=== PATIENT | female | born 1930 | race Caucasian/White ===

== ENCOUNTER 2016-09-15 22:01 | Inpatient (IN) | payer MEDICARE, MEDICAID ==
[2016-09-15 22:42] LABS: BASO # 0.1 K/uL (0.0-0.2); BASO % 1.3 % (0.0-2.0); EOS % 0.5 % (0.0-4.0); LYMPH # 1.7 K/uL (1.0-4.3); LYMPH % 27.2 % (20.0-40.0); MEAN CELL VOLUME 91.1 fL (81.0-99.0); MEAN CORPUSCULAR HEMOGLOBIN 30.7 pg (27.0-31.0); MEAN CORPUSCULAR HGB CONC 33.7 g/dL (33.0-37.0); MEAN PLATELET VOLUME 8.4 fL (7.2-11.7); MONO # 0.5 K/uL (0.0-0.8); MONO % 8.2 % (0.0-10.0); RED CELL DISTRIBUTION WIDTH 12.9 % (11.5-14.5); WHITE BLOOD COUNT 6.2 K/uL (4.8-10.8)
[2016-09-15 22:49] LABS: CHLORIDE 99 mmol/L (98-107); POTASSIUM 3.1 mmol/L (3.6-5.2); SODIUM 138 mmol/L (132-148)
[2016-09-15 22:51] LABS: ALB/GLOB RATIO 1.2 (1.0-2.1); ALKALINE PHOSPHATASE 125 U/L (38-126); AST/SGOT 28 U/L (14-36); BILIRUBIN,TOTAL 0.9 mg/dL (0.2-1.3); BLOOD UREA NITROGEN 13 mg/dL (7-17); CARBON DIOXIDE 26 mmol/L (22-30); GFR AFRICAN-AMERICAN > 60; TOTAL PROTEIN 7.1 g/dL (6.3-8.3)
[2016-09-15 22:52] LABS: ALCOHOL SERUM < 10 mg/dl (0-10); ALT/SGPT 20 U/L (9-52); CALCIUM 9.1 mg/dl (8.6-10.4); GLUCOSE,RANDOM 123 mg/dL (65-105)
[2016-09-15 22:56] LABS: RBC URINE 4 /hpf (0-3); TRANSITIONAL EPITHIAL < 1 /hpf (0-3); URINE BACTERIA RARE (<OCC); URINE BILIRUBIN NEGATIVE (NEGATIVE); URINE BLOOD 1+ (NEGATIVE); URINE COLOR Yellow (YELLOW); URINE GLUCOSE (UA) NORMAL (Normal); URINE HYALINE CAST 0-2 /lpf (0-2); URINE KETONE TRACE mg/dL (NEGATIVE); URINE LEUKOCYTE ESTERASE 1+ Leu/uL (Negative); URINE PROTEIN NEGATIVE (NEGATIVE); URINE UROBILINOGEN NORMAL mg/dL (0.2-1.0); WBC URINE 6 /hpf (0-5)
[2016-09-15 23:08] LABS: FREE T4 1.32 ng/dL (0.78-2.19)
--- NOTE | 2016-09-15 23:11 | C.PDOC ---
History Of Present Illness Patient is a 86 y/o female that is brought to the ED via BLS after being found confused and disoriented at the hotel she resides at. According to family, pt has history of dementia for the past several years. She stays at a hotel with her son but he recently was admitted to [facility] with a cancer diagnosis.. As per family, patient has been alone at the hotel, found to be confused, wandering in the hallways. She is not eating well and has not been sleeping. Patient denies any medical complaints at this time. Time Seen by Provider: 09/15/16 22:08 Chief Complaint (Nursing): Medical Clearance History Per: Patient History/Exam Limitations: no limitations Onset/Duration Of Symptoms: Days Current Symptoms Are (Timing): Still Present Recent travel outside of the [place]: No Additional History Per: EMS Past Medical History Reviewed: Historical Data, Nursing Documentation, Vital Signs Vital Signs: Last Vital Signs Temp 98.3 F 09/15/16 22:08 Pulse 74 09/15/16 22:08 Resp 20 09/15/16 22:08 BP 143/83 09/15/16 22:08 Pulse Ox 99 09/15/16 23:44 - Medical History PMH: Alzheimer's Disease, Dementia (Dizziness) Denies: Arthritis, CHF, COPD, HTN, Hypercholesterolemia, Hypothyroidism, Chronic Kidney Disease, Rheumatoid Arthritis Surgical History: Cholecystectomy - [facility] Procedures APPLICATION OF SPLINT (01/27/14) DPT ADMINISTRATION (09/13/14) VACCINATION NEC (09/13/14) Family History: States: Unknown Family Hx - Social History Hx Alcohol Use: No Hx Substance Use: No Review Of Systems Except As Marked, All Systems Reviewed And Found Negative. Constitutional: Negative for: Fever, Chills Cardiovascular: Negative for: Chest Pain, Palpitations Respiratory: Negative for: Shortness of Breath Gastrointestinal: Negative for: Nausea, Vomiting, Abdominal Pain Neurological: Positive for: Confusion. Negative for: Headache, Dizziness Physical Exam - Physical Exam Appears: Non-toxic, No Acute Distress Skin: Normal Color, Warm, Dry Head: Atraumatic, Normacephalic Eye(s): bilateral: Normal Inspection, EOMI Neck: Normal ROM, Supple Chest: Symmetrical, No Tenderness Cardiovascular: Rhythm Regular, No Murmur Respiratory: Normal Breath Sounds, No Rales, No Rhonchi, No Wheezing Gastrointestinal/Abdominal: Soft, No Tenderness Neurological/Psych: No Oriented x3, Normal Speech Disoriented To: Place, Time ED Course And Treatment - Laboratory Results Result Diagrams: 09/15/16 22:32 09/15/16 22:32 Lab Interpretation: Abnormal (Normal except for TSH 6.6) O2 Sat by Pulse Oximetry: 99 (on RA) Pulse Ox Interpretation: Normal - CT Scan/US Head CT Other Rad Studies (CT/US): Read By Radiologist, Radiology Report Reviewed CT/US Interpretation: FINDINGS: Brain: There is dilatation of sulci gyri and ventricles. There is no midline shift. There is decreased. attenuation in periventricular white matter. There is an age-indeterminate lacunar infarct in the left. basal ganglia There are no focal masses. There are no focal hemorrhages. Neal-white differentiation. is visualized. Ventricles: See above. Bones: Cranial vault is intact. Soft tissues: unremarkable. Sinuses: There is right maxillary sinusitis. Ears and mastoids: Middle ears and mastoids are unremarkable. Orbits: Orbital contents are unremarkable. IMPRESSION: Atrophy and small vessel disease, no bleed; right maxillary sinusitis Progress Note: Head CT, labs ordered and reviewed. - Physician Consult Information Time Consulting Physician Contacted: 23:56 Physician Contacted: Colette De Outcome Of Conversation: Patient to be admitted with altered mental status. Disposition - Disposition Disposition: HOSPITALIZED Disposition Time: 23:57 Condition: STABLE - POA Present On Arrival: None - Clinical Impression Clinical Impression: Mental status alteration - Scribe Statement The provider has reviewed the documentation as recorded by the Flores Smtih Provider Attestation: All medical record entries made by the Flores were at my direction and personally dictated by me. I have reviewed the chart and agree that the record accurately reflects my personal performance of the history, physical exam, medical decision making, and the department course for this patient. I have also personally directed, reviewed, and agree with the discharge instructions and disposition.
[2016-09-15 23:22] LABS: THYROID STIMULATING HORMONE 6.6 mIU/L (0.46-4.68)
--- NOTE | 2016-09-15 23:23 | CT ---
EXAM: CT Head Without Intravenous Contrast CLINICAL HISTORY: 86 years old, female; Signs and symptoms; Other: Dementia; Patient HX: 07-17-15 TECHNIQUE: Axial computed tomography images of the head/brain without intravenous contrast. This CT exam was performed using one or more of the following dose reduction techniques: automated exposure control, adjustment of the mA and/or kV according to patient size, and/or use of iterative reconstruction technique. EXAM DATE/TIME: 09/15/2016 10:17 PM COMPARISON: There are no prior studies for comparison. FINDINGS: Brain: There is dilatation of sulci gyri and ventricles. There is no midline shift. There is decreased attenuation in periventricular white matter. There is an age-indeterminate lacunar infarct in the left basal ganglia There are no focal masses. There are no focal hemorrhages. Neal-white differentiation is visualized. Ventricles: See above. Bones: Cranial vault is intact. Soft tissues: unremarkable Sinuses: There is right maxillary sinusitis. Ears and mastoids: Middle ears and mastoids are unremarkable. Orbits: Orbital contents are unremarkable. IMPRESSION: Atrophy and small vessel disease, no bleed; right maxillary sinusitis
[2016-09-17 08:36] LABS: HEMATOCRIT 37.8 % (34.0-47.0); MEAN CELL VOLUME 91.5 fL (81.0-99.0); MEAN CORPUSCULAR HGB CONC 33.9 g/dL (33.0-37.0); MEAN PLATELET VOLUME 8.5 fL (7.2-11.7); RED CELL DISTRIBUTION WIDTH 13.1 % (11.5-14.5); WHITE BLOOD COUNT 6.3 K/uL (4.8-10.8)
[2016-09-17 09:07] LABS: CHLORIDE 103 mmol/L (98-107)
[2016-09-17 09:08] LABS: SODIUM 138 mmol/L (132-148)
[2016-09-17 09:10] LABS: CARBON DIOXIDE 28 mmol/L (22-30); CHOLESTEROL 172 mg/dL (0-199)
[2016-09-17 09:11] LABS: ALB/GLOB RATIO 0.9 (1.0-2.1); ALKALINE PHOSPHATASE 113 U/L (38-126); ALT/SGPT 22 U/L (9-52); AST/SGOT 25 U/L (14-36); BILIRUBIN,DIRECT 0.3 mg/dL (0.0-0.4); BILIRUBIN,TOTAL 0.7 mg/dL (0.2-1.3); BLOOD UREA NITROGEN 10 mg/dL (7-17); GFR AFRICAN-AMERICAN > 60; GLUCOSE,RANDOM 97 mg/dL (65-105); TOTAL PROTEIN 6.4 g/dL (6.3-8.3)
[2016-09-17 09:32] LABS: THYROID STIMULATING HORMONE 5.71 mIU/L (0.46-4.68)
[2016-09-17] MEDS: Multiple Vitamins Tab PO SCH (10:59)
[2016-09-17] MEDS ORDERED: Potassium Chloride 20 mEq/15 ml LIQ UD PO ONE ×2 (11:00→14:00)
--- NOTE | 2016-09-17 21:25 | CON ---
DATE: 09/17/2016 HISTORY OF PRESENT ILLNESS: This is an 86-year-old female with a past medical history of de mentia, Alzheimer's type, came here with altered mental status from and found to be confused an d wandering in the hallway. Now CAT scan of the head was done, which did not show acute findings, on ly an old lacunar infarct. PAST MEDICAL HISTORY: As above. Denies high blood pressure, diabetes. REVIEW OF SYSTEMS: A 10-point review of systems was negative except confused. PHYSICAL EXAMINATION: HEENT: Normocephalic, atraumatic. NECK: Supple. NEUROLOGIC: Alert, awake, oriented to self and not to place. Cranial nerves II-XII were tested. Pu pils reactive. EOM intact. Visual horowitz full. No facial asymmetry. Tongue midline. Motor examin ation: Moves all the extremities spontaneously. Deep tendon reflexes 1+. Both plantars are downgoi ng. Sensory appears intact. Cerebellar and gait deferred. IMPRESSION: Dementia with intermittent confusional state. CAT scan of the head was negative for ble ed. LABORATORY DATA: WBC 6.2, hemoglobin 13.5, hematocrit 40, platelets 219. Sodium 138, potassium 3.1, chloride 99, CO2 , glucose 123, BUN 13, creatinine . Will put her on Aricept 10 mg p.o. daily. Continue present medical Horace Adkins MD cc: [id number] TT: 09/17/2016 21:24:54 Confirmation # [id number] Dictation # [id number] mn
--- NOTE | 2016-09-18 07:13 | PN ---
DATE: 09/17/2016 SUBJECTIVE: The patient seen and examined on the bedside, looks comfortable, sleeping, easily arousa ble. No nausea, vomiting, or diarrhea. No hematuria or hematochezia. No swelling of the legs. No headache, no dizziness. PHYSICAL EXAMINATION: VITAL SIGNS: Temperature 97.5, pulse 111, blood pressure 186//85, respiratory rate 20. HEENT: Head normocephalic, atraumatic. Eyes: PERRLA. Extraocular muscles intact. Conjunctivae cl ear. Nose patent. Mucous membranes moist. NECK: Supple. No carotid bruit, JVD or thyromegaly. CHEST: Bilaterally symmetrical. HEART: S1, S2 positive. LUNGS: Clear to auscultation. ABDOMEN: Soft. Bowel sounds positive. No organomegaly. EXTREMITIES: No edema, no cyanosis. NEUROLOGIC: The patient is awake, alert, moving all 4 extremities, but confused. MEDICATIONS: Aricept, heparin, multivitamins, Pepcid, Tylenol. LABORATORY DATA: White blood cells 6.3, hemoglobin 12.8, hematocrit 37.8, and platelets 214. Sodium 138, potassium 3.0, BUN 10, creatinine 0.8, vitamin D 25 hydroxy is 1less than 12.8. ASSESSMENT AND PLAN: The patient is an 86-year-old female with hypokalemia, replaced; hypoalbuminemi a, vitamin D deficiency, hypothyroidism, hematuria, urinary tract infection, history of altered menta l status, dementia, living alone, anxious, cannot take care of herself. Son wishes to take care of h er, but now son is in the hospital struggling with metastatic cancer. CAT scan of the head is negati ve for bleed. Gastrointestinal and deep venous thrombosis prophylaxis. Repeat labs. We will follow up. Colette De MD cc: [id number] TT: 09/18/2016 07:13:24 Confirmation # [id number] Dictation # [id number] tn
[2016-09-18 08:26] LABS: CHLORIDE 101 mmol/L (98-107); SODIUM 140 mmol/L (132-148)
[2016-09-18 08:27] LABS: POTASSIUM 3.7 mmol/L (3.6-5.2)
[2016-09-18 08:29] LABS: GFR AFRICAN-AMERICAN > 60
[2016-09-18 08:30] LABS: BLOOD UREA NITROGEN 15 mg/dL (7-17); CARBON DIOXIDE 27 mmol/L (22-30); GLUCOSE,RANDOM 137 mg/dL (65-105)
[2016-09-18] MEDS: Multiple Vitamins Tab PO SCH (09:50)
--- NOTE | 2016-09-18 21:47 | PN ---
DATE: 09/18/2016 SUBJECTIVE: The patient was seen and examined on the bedside, sleepy, arousable , moving all 4 extremities. No focal deficits. No nausea, vomiting, diarrhea or hematochezia. No swelling of the leg. No chest pain or palpitation, PHYSICAL EXAMINATION: VITAL SIGNS: Temperature 97.4, pulse 56, blood pressure 113/53, respiratory rate 21. HEAD: Normocephalic, atraumatic. EYES: PERRLA. Extraocular muscles intact. Conjunctivae clear. Nose patent. Mucous membranes moist. NECK: Supple. No carotid bruit or thyromegaly. CHEST: Bilaterally symmetrical. HEART: S1, S2 positive. LUNGS: Clear to auscultation. ABDOMEN: Soft. Bowel sounds present. No organomegaly. EXTREMITIES: No edema, no cyanosis. NEUROLOGIC: The patient is awake, alert, moving all 4 extremities. No focal deficits. The patient is awake, but confused. MEDICATIONS: Aricept, heparin, multivitamins, Pepcid, and Tylenol. LABORATORY DATA: White blood cells 6.3, hemoglobin 12.8, hematocrit 37.8, and platelets 214. Sodium 140, potassium 3.7, BUN of 15, creatinine 0.9 and glucose 137. ASSESSMENT AND PLAN: This patient is a 86-year-old lady with history of hypokalemia replaced, hyperglycemia, vitamin D deficiency, hypothyroidism, advanced dementia, living alone cannot do her ADLs, hematuria, urinary tract infection, history of altered mental status. Neurologist and psychiatrist are on the case. We will replace vitamin D. We will follow up. Gastrointestinal and deep vein thrombosis prophylaxis. Colette De MD cc: [id number] TT: 09/18/2016 21:46:38 Confirmation # [id number] Dictation # [id number] jn MTDD
[2016-09-19] MEDS: Multiple Vitamins Tab PO SCH (10:33)
[2016-09-20 10:10] VITALS: RESP 20
[2016-09-20] MEDS: Multiple Vitamins Tab PO SCH (10:22)
--- NOTE | 2016-09-20 11:03 | PN ---
DATE: 09/19/2016 The patient is an 86-year-old female. The patient is seen and examined on the bedside on 09/19/2016. Looks comfortable, not a good historian. No nausea, vomiting, diarrhea. No hematuria, no hematochezia. No swelling of the legs. No chest pain, no palpitation. No headache, no dizziness. PHYSICAL EXAMINATION: VITAL SIGNS: Temperature 97.9, pulse 78, blood pressure 120/80 , respiratory rate 18. HEENT: Head normocephalic, atraumatic. Eyes: PERRLA. Extraocular muscles intact. Conjunctivae clear. Nose patent. Mucous membranes moist. NECK: Supple. No carotid bruit, no JVD, no thyromegaly. CHEST: Bilaterally symmetrical. HEART: S1, S2 positive. LUNGS: Clear to auscultation. ABDOMEN: Soft. Bowel sounds positive. No organomegaly. EXTREMITIES: No edema, no cyanosis. NEUROLOGIC: The patient is awake, alert, moving all 4 extremities. No focal deficit, but confused. MEDICATIONS: Aricept, multivitamin, Pepcid, Tylenol. LABORATORIES: We do not have recent labs today, but I reviewed old labs. ASSESSMENT AND PLAN: The patient is an 86-year-old lady with dementia, intermittent confusional state. CAT scan of the head is negative for bleeding as per neurologist. History of electrolyte imbalance, replaced, vitamin D deficiency, replaced, hypothyroidism, activities of daily living dysfunction, hematuria, urinary tract infection, altered mental status. Neurologist is on the case. Gastrointestinal and deep venous thrombosis prophylaxis. Repeat labs. Will follow up. Colette De MD cc: [id number] TT: 09/20/2016 11:02:23 Confirmation # [id number] Dictation # [id number] en MTDD
--- NOTE | 2016-09-21 06:57 | PN ---
DATE: 09/20/2016 SUBJECTIVE: The patient was seen and examined on the bedside. No nausea, vomiting, or diarrhea. No hematuria or hematochezia. No swelling of the leg. No chest pain, no palpitation, no change of the status. PHYSICAL EXAMINATION: VITAL SIGNS: Temperature 97.6, pulse 94, blood pressure 114/79, respiratory rate 20. HEENT: Head normocephalic and atraumatic. Eyes: PERRLA. Extraocular muscles intact. Conjunctivae clear. Nose patent. Mucous membranes moist. NECK: Supple. No carotid bruit. No JVD or thyromegaly. CHEST: Bilaterally symmetrical. HEART: S1, S2 positive. LUNGS: Clear to auscultation. ABDOMEN: Soft. Bowel sounds present. No organomegaly. EXTREMITIES: No edema, no cyanosis. NEUROLOGIC: The patient is awake, alert, moving all 4 extremities. No focal deficits. MEDICATIONS: Aricept, multivitamin, Pepcid, Tylenol. LABORATORY DATA: We do not have recent labs today, but I reviewed old labs. ASSESSMENT AND PLAN: The patient is an 86-year-old lady with history of hypokalemia, improved, hyper glycemia, vitamin D deficiency, hypothyroidism, hematuria, proteinuria, urinary tract infection. Obie bermudez screening negative. Has advanced dementia. Neurologist and psychiatrist are on the case, awaiting for psychiatrist's input. CAT scan of the head is negative for bleeding as per neurologist. Replac ing vitamin D, monitoring hypothyroidism, had altered mental status. Neurology, Dr. Adkins, is on case. Waiting for Dr. London's input. Gastrointestinal and deep venous thrombosis prophylaxis. Re peat labs. We will follow up. Colette De MD cc: [id number] TT: 09/21/2016 06:57:34 Confirmation # [id number] Dictation # [id number] tn
[2016-09-21] MEDS: Multiple Vitamins Tab PO SCH (10:22)
[2016-09-22 08:20] LABS: BASO # 0.1 K/uL (0.0-0.2); EOS # 0.1 K/uL (0.0-0.7); EOS % 1.6 % (0.0-4.0); HEMATOCRIT 40.9 % (34.0-47.0); LYMPH # 2.9 K/uL (1.0-4.3); LYMPH % 36.5 % (20.0-40.0); MEAN CELL VOLUME 92.2 fL (81.0-99.0); MEAN CORPUSCULAR HEMOGLOBIN 30.7 pg (27.0-31.0); MEAN CORPUSCULAR HGB CONC 33.2 g/dL (33.0-37.0); MEAN PLATELET VOLUME 8.3 fL (7.2-11.7); MONO # 0.7 K/uL (0.0-0.8); MONO % 8.5 % (0.0-10.0); RED CELL DISTRIBUTION WIDTH 13.3 % (11.5-14.5); WHITE BLOOD COUNT 7.9 K/uL (4.8-10.8)
--- NOTE | 2016-09-22 08:29 | PN ---
DATE: 09/21/2016 SUBJECTIVE: The patient seen and examined on the bedside, looks comfortable. No nausea, vomiting, o r diarrhea. No hematuria or hematochezia. No swelling of the leg. No chest pain, no palpitations. No headache, no dizziness. PHYSICAL EXAMINATION: VITAL SIGNS: Temperature 98.3, pulse 78, blood pressure 153/77, respiratory rate 20. HEENT: Head normocephalic, atraumatic. Eyes: PERRLA. Extraocular muscles intact. Conjunctivae cl ear. Nose patent. Mucous membranes moist. NECK: Supple. No carotid bruit, JVD or thyromegaly. CHEST: Bilaterally symmetrical. HEART: S1, S2 positive. LUNGS: Clear to auscultation. ABDOMEN: Soft. Bowel sounds present. No organomegaly. EXTREMITIES: No edema, no cyanosis. NEUROLOGIC: The patient is awake, alert, moving all 4 extremities. No focal deficits. MEDICATIONS: Aricept, multivitamins, Pepcid, Tylenol. LABORATORY DATA: White count 6.4, hemoglobin 12.8, hematocrit 37.8, platelets 214. Sodium 140, pota ssium 3.7, BUN 15, creatinine 0.9, and glucose 137. ASSESSMENT AND PLAN: The patient is an 86-year-old lady with history of hypokalemia, improved; hyper glycemia, vitamin D deficiency, hypothyroidism, anemia. The patient was seen for the anemia with hem aturia, proteinuria, has advanced dementia, cannot do her activities of daily living. Seen by Dr. Peggy Adkins. Vitamin D deficiency. Neurology consult, infectious disease on the case, Needs rehabil itation. Altered mental status. Gastrointestinal and deep venous thrombosis prophylaxis. Repeat la bs. Length of time discussion done with the social workers. We will follow up. Colette De MD cc: [id number] TT: 09/22/2016 08:29:17 Confirmation # [id number] Dictation # [id number] sd
[2016-09-22 08:37] LABS: CHLORIDE 100 mmol/L (98-107); POTASSIUM 3.4 mmol/L (3.6-5.2); SODIUM 141 mmol/L (132-148)
[2016-09-22 08:39] LABS: GFR AFRICAN-AMERICAN > 60
[2016-09-22 08:40] LABS: ALB/GLOB RATIO 1.2 (1.0-2.1); ALKALINE PHOSPHATASE 110 U/L (38-126); ALT/SGPT 20 U/L (9-52); AST/SGOT 43 U/L (14-36); BILIRUBIN,TOTAL 0.9 mg/dL (0.2-1.3); BLOOD UREA NITROGEN 17 mg/dL (7-17); CARBON DIOXIDE 29 mmol/L (22-30); GLUCOSE,RANDOM 90 mg/dL (65-105); TOTAL PROTEIN 7.2 g/dL (6.3-8.3)
[2016-09-22 08:41] LABS: CALCIUM 9.2 mg/dl (8.6-10.4)
[2016-09-22] MEDS ORDERED: Ergocalciferol 50,000 Intl Units Cap PO SCH (10:00)
[2016-09-22] MEDS: Multiple Vitamins Tab PO SCH (10:36)
--- NOTE | 2016-09-22 10:42 | PCM.PSYCH ---
Initial Psychiatric Evaluation - Initial Psychiatric Evaluation Chief Complaint (in patient's own words): "nothing" History of Present Illness and Precipitating Events: Pt is seen, chart reviewed, case discussed. Consultation is requested for AMS and agitation. This is an 86yo female who is here for dementia with behavioral disturbances. She was found wandering in the streets after her son who she lives with got adnitted to this hospital. The patient only speaks Ukrainian, therefore the interview was translated by a medical staff. The patient says that shes good but when asked where she is she stated, at [facility]. When asked where she lives she stated, [facility]. The patient is not oriented to place or time and was unable to recall and repeat all 3 words stated to her. When asked about her psych history the patient stated, I love to dance and laugh. The patient also stated she has pain in her soul but then recanted saying she has no pain in her soul because she is with God. The pt is very confused, forgetful and inattentive and gets agitated at night time. She has no capacity to take care of her needs or make medical decisions. Current Medications: Active Medications Generic Name Dose Route Start Last Admin Trade Name Freq PRN Reason Stop Dose Admin Acetaminophen 650 mg 09/17/16 06:22 Tylenol 325mg Tab PO Q6 PRN Pain, Mild (1-3) Donepezil HCl 10 mg 09/17/16 22:00 09/21/16 22:00 Aricept PO 10 mg HS MENA Administration Ergocalciferol 1 cap 09/22/16 10:00 Drisdol 50,000 Intl Units Cap PO QWK MENA Famotidine 40 mg 09/17/16 11:00 09/21/16 10:22 Pepcid PO 40 mg DAILY MENA Administration Multivitamins 1 tab 09/17/16 10:00 09/21/16 10:22 Hexavitamin PO 1 tab DAILY MENA Administration Past Psychiatric History - Past Psychiatric History Previous Treatment History: None (unknown. Only dementia is known) Pertinent Medical Hx (Current Medical&Sleep Prob, Allergies): Allergies Allergy/AdvReac Type Severity Reaction Status Date / Time No Known Allergies Allergy Verified 09/15/16 22:16 Review of Systems - Review of Systems Systems not reviewed;Unavailable: Altered Mental Status - Neurological Neurological: Abnormal Speech, Confusion, Memory Loss - Psychiatric Psychiatric: Behavioral Changes, Confusion, Difficulty Concentrating, Irritability Mental Status Examination - Personal Presentation Personal Presentation: Looks stated age - Affect Affect: Blunted - Motor Activity Motor Activity: Calm - Reliability in Providing Information Reliability in Providing Information: Poor, due to alteration in thoughts, Poor , due to cognitve impairment - Speech Speech: Disorganized - Mood Mood: Neutral - Formal Thought Process Formal Thought Process: Delusions - Cognitive Functions Sensorium: Alert Attention/Concentration: Easily distracted Abstract Thinking: Sun Judgement: Imparied, as evidence by: Lack of insight into illness Memory: Recent impaired, as evidence by: Inability to recall events of the day, Recent imparied as evidence by:Inability to complete 3/3 object recall, Remote impaired as evidenced by: Inability to recall sig life events - Risk Risk: Elopement, Diminished functioning - Limitations Limitations: Decreased memory, recent DSM 5 DX - DSM 5 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
[2016-09-22] MEDS: traZODone 25 mg Tab PO SCH (21:41)
--- NOTE | 2016-09-23 06:56 | PN ---
DATE: 09/22/2016 SUBJECTIVE: The patient was seen and examined on the bedside. Looks comfortable. No changes. The sitter was sitting on the chair. No overnight changes noticed. PHYSICAL EXAMINATION: VITAL SIGNS: Temperature 97.4, pulse 73, blood pressure 150/66, respiratory 20. HEENT: Head normocephalic, atraumatic. Eyes PERRLA. Extraocular movements intact. Conjunctivae clear. Nose patent. Mucous membranes moist. NECK: Supple. No carotid bruit, JVD or thyromegaly. CHEST: Bilaterally symmetrical. HEART: S1, S2 positive. LUNGS: Clear to auscultation. ABDOMEN: Soft. Bowel sounds present. No organomegaly. EXTREMITIES: No edema, no cyanosis. NEUROLOGIC: The patient awake, alert, moving all 4 extremities. No focal deficit. MEDICATIONS: trazodone, Haldol, multivitamin, Pepcid, Tylenol. LABORATORY DATA: We do not have lab today, but I reviewed old labs. ASSESSMENT AND PLAN: Hypokalemia, replaced. Abnormal liver function tests. Hematuria. Advanced dementia. Seen by the psychiatrist Nathaniel Magdaleno. She has ADL problem. The patient was found wandering in the streets after her son was admitted in the hospital . Admitted to the hospital of the [facility]. The patient only speaks Bulgarian. The patient has medical problem, displacement. is the problem, vitamin D deficiency. We are giving Pepcid for gastrointestinal prophylaxis. Psychiatry saw the patient, started trazodone for insomnia . P.r.n. dose of Haldol for agitation. Looking for placement. We will follow up. Colette De MD cc: [id number] TT: 09/23/2016 00:58:34 Confirmation # [id number] Dictation # [id number] sn 09/23/2016 05:55:20 DAMIAN
[2016-09-23] MEDS: Multiple Vitamins Tab PO SCH (10:46)
[2016-09-23 16:57] VITALS: O2SAT 98
[2016-09-23] MEDS: traZODone 25 mg Tab PO SCH (21:33)
--- NOTE | 2016-09-24 06:42 | PN ---
DATE: 09/23/2016 SUBJECTIVE: The patient seen and examined on the bedside, looks comfortable. No nausea, vomiting, o r diarrhea. No hematuria or hematochezia. No swelling of the leg. No chest pain, no palpitation, n o headache, no dizziness. No fever, no chills. PHYSICAL EXAMINATION: VITAL SIGNS: Temperature is 97.4, pulse 73, blood pressure 150/56, respiratory rate 20. HEENT: Head normocephalic, atraumatic. Eyes: PERRLA. Extraocular muscles intact. Conjunctivae cl ear. Nose patent. Mucous membranes moist. NECK: Supple. No carotid bruit, JVD or thyromegaly. CHEST: Bilaterally symmetrical. HEART: S1, S2 positive. LUNGS: Clear to auscultation. ABDOMEN: Soft. Bowel sounds present. No organomegaly. EXTREMITIES: No edema, no cyanosis. NEUROLOGIC: The patient is awake, alert, moving all 4 extremities. No focal deficits, but confused. MEDICATIONS: Trazodone, Haldol, multivitamin, Pepcid, and Tylenol. LABORATORY DATA: We do not have recent labs today, but I reviewed old labs. ASSESSMENT AND PLAN: The patient is an 86-year-old lady with advanced dementia, hypokalemia, replace d; abnormal liver function tests, hematuria, hypertension, degenerative joint disease. Seen by psych iatrist, living alone, cannot do her activities of daily living. Waiting [facility] approval from the [facility]. We will transfer the patient to the rehab. Meanwhile, continue present treatment. The patie nt seen by Dr. Nathaniel Magdaleno. We will follow up. Colette De MD cc: [id number] TT: 09/24/2016 06:41:42 Confirmation # [id number] Dictation # [id number] ludivina
[2016-09-24] MEDS: Multiple Vitamins Tab PO SCH (10:30)
[2016-09-24 15:45] VITALS: BP 123/68; PULSE 67; TEMP 97.6
--- NOTE | 2016-09-24 15:49 | CP.PCM.PN ---
Subjective - Date & Time of Evaluation Date of Evaluation: 09/24/16 Time of Evaluation: 15:40 - Subjective Subjective: DIRECTOR MARKET RESEARCH NOTES 86 yr old female admitted for advanced dementia, hypokalemia , AMS Pt seen and examined today alert, comfortable , denies any chest pain, sob, abdominal pain N/V /D vss -stable Pt clinically improved Pt accepted at [facility] for rehab D/W with Dr. Carmona , stable for discharge to [facility] today and Dr. Carmona will follow the patient at [facility] Objective - Vital Signs/Intake and Output Vital Signs (last 24 hours): Temp Pulse Resp BP Pulse Ox 97.6 F 67 20 123/68 98 09/24/16 15:00 09/24/16 15:00 09/24/16 15:00 09/24/16 15:00 09/24/16 15:00 Intake and Output: 09/24/16 09/24/16 06:59 18:59 Intake Total 320 Balance 320 - Medications Medications: Current Medications Acetaminophen (Tylenol 325mg Tab) 650 mg PO Q6 PRN PRN Reason: Pain, Mild (1-3) Donepezil HCl (Aricept) 10 mg PO HS [facility] Last Admin: 09/23/16 21:33 Dose: 10 mg Ergocalciferol (Drisdol 50,000 Intl Units Cap) 1 cap PO QWK [facility] Last Admin: 09/22/16 10:40 Dose: Not Given Famotidine (Pepcid) 40 mg PO DAILY [facility] Last Admin: 09/24/16 09:14 Dose: 40 mg Haloperidol (Haldol) 2 mg PO Q6H PRN PRN Reason: Agitation Last Admin: 09/23/16 21:33 Dose: 2 mg Multivitamins (Hexavitamin) 1 tab PO DAILY [facility] Last Admin: 09/24/16 10:30 Dose: 1 tab Trazodone HCl (Desyrel) 25 mg PO HS [facility] Last Admin: 09/23/16 21:33 Dose: 25 mg - Labs Labs: 09/22/16 08:11 09/22/16 08:11
--- NOTE | 2016-09-27 18:31 | DS ---
CHIEF COMPLAINT: Altered mental status. HISTORY OF PRESENT ILLNESS: The patient is an 86-year-old lady with a history of advanced dementia, was actually living with her son. Her son had gotten sick and was admitted in [facility]. After that she was alone and was not able to do her ADLs. The family brought her to the Emergency Room for altered status. No fever, no chills. No headache, no dizziness. No hematuria or hematochezia. Actually, she was found confused and disoriented at the hotel. She used to live in a hotel with her son, but recently the patient's son was admitted in [facility] with cancer diagnosis. Now the patient was living alone in the hotel and found to be confused, wandering in the hallway, not eating and not sleeping. We admitted the patient. We did a CAT scan of the head. Neurology consult called with Dr. Adkins. Got placement in [facility] for the patient and discharged there. Will continue treatment there. Maybe the patient's son will go to the same place depending on insurance approval. PAST MEDICAL HISTORY: Dementia, history of rheumatoid arthritis, cholecystectomy. ALLERGIES: The patient is not allergic to any medications. HABITS: Never smoking, no drugs, no ethanol. FAMILY HISTORY: Father and mother noncontributory. REVIEW OF SYSTEMS: The patient was seen and examined on the bedside, looks comfortable. No nausea, vomiting, or diarrhea. No fever, no chills. No chest pain, no palpitation. No shortness of breath. Still confused,. Negative for headache or dizziness. PHYSICAL EXAMINATION: VITAL SIGNS: Temperature 97.6, pulse 67, blood pressure 123/68, respiratory rate 20. HEAD: Normocephalic, atraumatic. EYES: PERRLA. Extraocular muscles intact. Conjunctivae clear. Nose patent. Mucous membranes moist. NECK: Supple. No carotid bruit, JVD or thyromegaly. CHEST: Bilaterally symmetrical. HEART: S1, S2 positive. LUNGS: Clear to auscultation. ABDOMEN: Soft. Bowel sounds present. No organomegaly. EXTREMITIES: No edema, no cyanosis. NEUROLOGIC: The patient is awake, alert, moving all 4 extremities. No focal deficit. LABORATORY DATA: White blood cells 7.9, hemoglobin noted , hematocrit 40.9, and platelets 289. Sodium 141, potassium 3.4, BUN 17, creatinine 0.8, AST 43. ASSESSMENT AND PLAN: The patient is an 86-year-old lady with hypokalemia, replaced; abnormal liver function test, vitamin D deficiency, replaced and hypothyroidism, is admitted in [facility] for altered mental status. Has advanced dementia, history of hematuria, hypertension, degenerative joint disease, seen by the psychiatrist and neurologist. Is not able to do her activities of daily living. Now transferred the patient to [place]. Will do continuity of care. Vitamin D deficiency, replaced and will followup. Colette De MD cc: [id number] TT: 09/27/2016 18:30:40 dn MTDD
== END 2016-09-24 18:45 | DRG 57 ==
LOC: C.ER 22:01 → C.3T 23:57
PROVIDERS: ADMIT Internal Medicine; ATTEND Internal Medicine
DX: G30.9 Alzheimer's disease, unspecified (principal); F02.81 Dementia in other diseases classified elsewhere, unspecified severity, with behavioral disturbance; N39.0 Urinary tract infection, site not specified; E88.09 Other disorders of plasma-protein metabolism, not elsewhere classified; R31.9 Hematuria, unspecified; E03.9 Hypothyroidism, unspecified; R73.9 Hyperglycemia, unspecified; R80.9 Proteinuria, unspecified; Z91.83 Wandering in diseases classified elsewhere; I10 Essential (primary) hypertension; E87.6 Hypokalemia; E55.9 Vitamin D deficiency, unspecified; D64.9 Anemia, unspecified; G47.00 Insomnia, unspecified; M19.90 Unspecified osteoarthritis, unspecified site